=== PATIENT | male | born 1990 | race Caucasian/White ===

== ENCOUNTER 2019-12-30 22:30 | Emergency (ER) | payer SELFPAY ==
[2019-12-30 22:40] VITALS: BP 154/97
--- NOTE | 2019-12-30 22:46 | ED Physician Documentation ---
History of Present Illness - Stated complaint Stated Complaint: AMS S/P LSD - Chief complaint Chief Complaint: General - History obtained from History obtained from: Patient, Police - History of Present Illness Timing: Today Pain level max: 0 Pain level now: 0 - Additonal information Additional information: patient was exhibiting odd behavior in a park tonight. parking meter installer arrived and patient told he had to leave the premises. patient reportedly admitted to using LSD tonight. patient was asked if he wanted transport to the ED and patient said he did; it is entirely unclear why patient was asked this and why he agreed to transport. As soon as patient arrives, he insists on leaving. On my HPI, patient is terse, provides glib answers to some questions, reiterates wanting to leave. He tells me he feels fine. evasive regarding questions about drug use. Review of Systems Psychiatric: denies: Depressed, Suicidal, Homicidal, Delusions PD PAST MEDICAL HISTORY - Past Medical History Past Medical History: No PD ED PE NORMAL - Vitals Vital signs reviewed: Yes - General General: Alert and oriented X 3, No acute distress, Well developed/nourished, Other (Has to be directed, repeatedly, to sit on stretcher so I can examine him. ) - HEENT HEENT: Atraumatic, PERRL, EOMI - Neck Neck: No bony TTP - Cardiac Cardiac: RRR, No murmur - Respiratory Respiratory: No respiratory distress, Clear bilaterally - Neuro Neuro: Alert and oriented X 3, psych specialist 2-12 intact, Normal speech Results - Vitals Vitals: Oxygen O2 Source Room air PD MEDICAL DECISION MAKING - ED course Complexity details: considered differential, d/w patient ED course: Patient repeatedly asks to leave as soon as he arrives to ED, walking around in room and hallway, repeatedly has to be told to wait in room for my evaluation. He reportedly admitted to parking meter installer that he took LSD earlier tonight. Lee Ann Lyles chichi tells me that patient has significantly improved over past 30-45 minutes (was acting bizarre). patient is able to provide adequate answers to indicate he is not a danger to himself or others and he is not altered such that he would require ED stay/testing/further observation. Departure - Departure Disposition: 01 Home, Self Care Clinical Impression: Normal exam Condition: Good Instructions: ED Screening Exam Medical Nonurgent Discharge Date/Time: 12/30/19 22:52
== END 2019-12-30 22:52 | disposition home or self-care (01) ==
LOC: EDBD → ED 22:30
DX: Z03.89 Encounter for observation for other suspected diseases and conditions ruled out (principal)
CPT/HCPCS: 99282; 99283